=== PATIENT | male | born 1985 | race Caucasian/White ===

== ENCOUNTER 2019-05-17 20:14 | Emergency (ER) | payer MEDICAID, OTHER ==
[2019-05-17] MEDS: LIDOCAINE 1% (MDV) 20 ML INJ SC (21:21)
[2019-05-17] MEDS: ACETAMINOPHEN 325 MG TAB PO (21:43)
== END 2019-05-17 23:11 | disposition home or self-care (01) ==
LOC: FTE 20:14
DX: L60.0 Ingrowing nail (principal)
CPT/HCPCS: 11765; 99283-25